=== PATIENT | male | born 1985 | race Caucasian/White ===

== ENCOUNTER → 2018-06-23 | Outpatient (REF) | payer OTHER | LOC: M LAB REF 08:15 | DX: K05.10 Chronic gingivitis, plaque induced (principal) ==

== ENCOUNTER 2018-11-04 23:57 | Emergency (ER) | payer OTHER | END 2018-11-05 00:20 | disposition home or self-care (01) | LOC: M ED 23:57 | DX: S50.812A Abrasion of left forearm, initial encounter (principal); F10.129 Alcohol abuse with intoxication, unspecified; W19.XXXA Unspecified fall, initial encounter; Y92.410 Unspecified street and highway as the place of occurrence of the external cause; Y93.9 Activity, unspecified; Y99.9 Unspecified external cause status | CPT/HCPCS: 99282 ==